=== PATIENT | male | born 1960 | race Caucasian/White ===

== ENCOUNTER 2024-12-12 11:45 | Outpatient (RCR) | payer OTHER, SELFPAY ==
[2024-06-18 11:02] LABS: Basophils Absolute Auto 0.02 K/uL (0.00-0.30); Basophils Percent Auto 0.4 % (0.0-3.0); Eosinophils Absolute Auto 0.01 K/uL (0.00-0.50); Eosinophils Percent Auto 0.2 % (0.0-7.0); Hematocrit 37.2 % (37.0-53.0); Hemoglobin* 13.1 gm/dL (13.5-17.5); Immature Granulocytes Abs Auto 0.01 K/uL (0.00-0.30); Immature Granulocytes Pct Auto 0.2 %; Lymphocytes Percent Auto 4.2 % (20-44); Mean Corpuscular HGB Conc 35 gm/dL (32-36); Mean Corpuscular Hemoglobin 31 pg (26-34); Mean Corpuscular Volume 89 fL (80-100); Monocytes Percent Auto 11.3 % (0.0-11.0); Neutrophils Percent Auto 83.7 % (42.0-72.0); Platelet Count* 148 K/uL (140-440); RDW Coefficient of Variation % 13.3 % (11.5-15.5)
[2024-06-18 11:05] LABS: Slide Review Reflex No
[2024-06-18 11:26] LABS: Albumin* 4.1 g/dL (3.3-5.0)
[2024-06-18 11:27] LABS: Chloride* 102 mmol/L (96-114); Potassium* 3.7 mmol/L (3.6-5.1)
[2024-06-18 11:29] LABS: Aspartate Amino Transferase* 28 U/L (12-35); Bilirubin Total* 1.1 mg/dL (0.1-1.5); Carbon Dioxide* 31 mmol/L (20-32); Creatinine* 0.6 mg/dL (0.5-1.5); Est. Creatinine Clearance* 82.99; Estimated Glomerular Filt Rate 108 ml/min; Total Protein* 6.5 g/dL (6.0-8.3)
[2024-06-18 11:30] LABS: Alanine Aminotransferase* 15 U/L (4-50); Alkaline Phosphatase* 86 U/L (40-150); Blood Urea Nitrogen* 13 mg/dL (7-30); Calcium* 9.2 mg/dL (8.4-10.6); Glucose* 92 mg/dL (60-115)
[2024-06-18 11:43] LABS: Anion Gap 6 mEq/L (7-15); Sodium* 139 mmol/L (135-149)
[2024-06-18 11:46] LABS: PSA Diagnostic* < 0.06 ng/mL (0.10-4.00)
[2024-09-17 12:29] LABS: Basophils Absolute Auto 0.01 K/uL (0.00-0.30); Basophils Percent Auto 0.2 % (0.0-3.0); Hematocrit 41.4 % (37.0-53.0); Hemoglobin* 14.2 gm/dL (13.5-17.5); Immature Granulocytes Abs Auto 0.01 K/uL (0.00-0.30); Immature Granulocytes Pct Auto 0.2 %; Lymphocytes Percent Auto 11.9 % (20-44); Mean Corpuscular HGB Conc 34 gm/dL (32-36); Mean Corpuscular Hemoglobin 31 pg (26-34); Mean Corpuscular Volume 91 fL (80-100); Monocytes Percent Auto 9.4 % (0.0-11.0); Neutrophils Percent Auto 78.3 % (42.0-72.0); Platelet Count* 162 K/uL (140-440); RDW Coefficient of Variation % 11.4 % (11.5-15.5); Red Blood Count 4.57 m/uL (4.30-5.90); White Blood Count* 4.89 K/uL (4.50-11.00)
[2024-09-17 12:33] LABS: Slide Review Reflex No
[2024-09-17 12:46] LABS: Albumin* 4.3 g/dL (3.3-5.0); Chloride* 104 mmol/L (96-114); Potassium* 4.1 mmol/L (3.6-5.1); Sodium* 141 mmol/L (135-149)
[2024-09-17 12:49] LABS: Alanine Aminotransferase* 18 U/L (4-50); Alkaline Phosphatase* 121 U/L (40-150); Anion Gap 6 mEq/L (7-15); Aspartate Amino Transferase* 25 U/L (12-35); Bilirubin Total* 0.6 mg/dL (0.1-1.5); Blood Urea Nitrogen* 13 mg/dL (7-30); Carbon Dioxide* 31 mmol/L (20-32); Creatinine* 0.5 mg/dL (0.5-1.5); Est. Creatinine Clearance* 82.99; Estimated Glomerular Filt Rate 115 ml/min; Glucose* 125 mg/dL (60-115)
[2024-09-17 12:50] LABS: Calcium* 9.6 mg/dL (8.4-10.6)
[2024-09-17 13:45] LABS: PSA Diagnostic* < 0.06 ng/mL (0.10-4.00)
--- NOTE | 2024-09-18 11:15 | URNOTE ---
Request received for authorization for Leuprolide (Eligard) ([id number]). Prior authorization is not required as services are based on medical necessity per [employer]. Ann Liu Ref#[id number].
[2024-09-19 14:42] VITALS: BP 139/87; PULSE 82; RESP 16; TEMP 36.3; O2SAT 98
--- NOTE | 2024-11-29 13:20 | ONC.NURNOTE ---
Patient called for refill of tamsulosin- originally prescribed by Dr Mares patient was reminded that he needs a PCP- which he has not yet established care with since moving to [place] senior medical writer advised patient to check with Dr Mares about refills in the mean time, until he has PCP
[2024-12-12 11:54] LABS: Basophils Absolute Auto 0.02 K/uL (0.00-0.30); Basophils Percent Auto 0.4 % (0.0-3.0); Hematocrit 42.6 % (37.0-53.0); Hemoglobin* 14.6 gm/dL (13.5-17.5); Immature Granulocytes Abs Auto 0.01 K/uL (0.00-0.30); Immature Granulocytes Pct Auto 0.2 %; Lymphocytes Percent Auto 11.2 % (20-44); Mean Corpuscular HGB Conc 34 gm/dL (32-36); Mean Corpuscular Hemoglobin 30 pg (26-34); Mean Corpuscular Volume 89 fL (80-100); Monocytes Percent Auto 8.6 % (0.0-11.0); Neutrophils Percent Auto 79.6 % (42.0-72.0); Platelet Count* 175 K/uL (140-440); RDW Coefficient of Variation % 12.1 % (11.5-15.5); White Blood Count* 5.34 K/uL (4.50-11.00)
[2024-12-12 11:59] LABS: Slide Review Reflex No
[2024-12-12 12:13] LABS: Albumin* 4.4 g/dL (3.3-5.0); Chloride* 101 mmol/L (96-114); Potassium* 3.7 mmol/L (3.6-5.1); Sodium* 140 mmol/L (135-149)
[2024-12-12 12:15] LABS: Blood Urea Nitrogen* 12 mg/dL (7-30); Creatinine* 0.6 mg/dL (0.5-1.5); Est. Creatinine Clearance* 81.91; Estimated Glomerular Filt Rate 108 ml/min
[2024-12-12 12:16] LABS: Alanine Aminotransferase* 19 U/L (4-50); Alkaline Phosphatase* 118 U/L (40-150); Anion Gap 5 mEq/L (7-15); Aspartate Amino Transferase* 25 U/L (12-35); Bilirubin Total* 0.8 mg/dL (0.1-1.5); Carbon Dioxide* 34 mmol/L (20-32); Glucose* 131 mg/dL (60-115); Total Protein* 7.2 g/dL (6.0-8.3)
[2024-12-12 12:17] LABS: Calcium* 9.4 mg/dL (8.4-10.6)
[2024-12-12 12:50] LABS: PSA Diagnostic* < 0.06 ng/mL (0.10-4.00)
[2024-12-12] MEDS: LEUPROLIDE ACETATE 22.5 MG IM (13:49)
== END 2024-12-15 23:59 | disposition home or self-care (01) ==
LOC: CCIC 11:45
PROVIDERS: Visit Provider Internal Medicine Hematology & Oncology
DX: C61 Malignant neoplasm of prostate (principal); M85.80 Other specified disorders of bone density and structure, unspecified site; R19.7 Diarrhea, unspecified; R53.83 Other fatigue; R23.2 Flushing
CPT/HCPCS: 36415; 80053; 84153; 85025; 96402; 99202; 99205; 99213; 99214; G0463; J9217

== ENCOUNTER 2025-03-21 13:36 | Outpatient (CLI) | payer OTHER, SELFPAY | END 2025-03-21 13:37 | disposition home or self-care (01) | PROVIDERS: PCP Family Medicine; Visit Provider Family Medicine | DX: G62.9 Polyneuropathy, unspecified (principal); R53.83 Other fatigue; Z79.899 Other long term (current) drug therapy; Z11.8 Encounter for screening for other infectious and parasitic diseases | CPT/HCPCS: 82607; 84443; 86618 ==

== ENCOUNTER 2025-07-02 13:00 | Outpatient (RCR) | payer OTHER, SELFPAY ==
--- NOTE | 2025-03-07 09:54 | ONC.NURNOTE ---
Jeremiah called to report he inadvertantly took a second dose of prednisone and abiraterone at 2230 last night- 15 hours following the am dose he had eaten within 2 hours of taking the 2nd dose he called poison control and they advised no further action needed, other than skipping todays dose of abiraterone, and to monitor for any changes in his physical status, this senior underwriter supports this recommendation and patient reports no changes in his physical status noted that taking abiraterone with food does increase the bioavailability
[2025-03-13 13:59] LABS: Hematocrit* 39.4 % (37.0-53.0); Hemoglobin* 13.7 gm/dL (13.5-17.5); Immature Granulocytes Abs Auto 0.00 K/uL (0.00-0.30); Immature Granulocytes Pct Auto 0.0 %; Mean Corpuscular HGB Conc 35 gm/dL (32-36); Mean Corpuscular Hemoglobin 31 pg (26-34); Mean Corpuscular Volume 89 fL (80-100); RDW Coefficient of Variation % 12.2 % (11.5-15.5); Red Blood Count* 4.42 m/uL (4.30-5.90); White Blood Count* 5.06 K/uL (4.50-11.00)
[2025-03-13 14:09] LABS: Lymphocytes Absolute Auto 0.60 K/uL (0.90-2.90); Slide Review Reflex No
[2025-03-13 14:56] LABS: Albumin* 4.1 g/dL (3.3-5.0); Chloride* 102 mmol/L (96-114)
[2025-03-13 14:57] LABS: Potassium* 3.5 mmol/L (3.6-5.1); Sodium* 140 mmol/L (135-149)
[2025-03-13 14:59] LABS: Alanine Aminotransferase* 18 U/L (4-50); Anion Gap 9 mEq/L (7-15); Aspartate Amino Transferase* 31 U/L (12-35); Blood Urea Nitrogen* 13 mg/dL (7-30); Carbon Dioxide* 29 mmol/L (20-32); Creatinine* 0.6 mg/dL (0.5-1.5); Est. Creatinine Clearance* 81.91; Estimated Glomerular Filt Rate 108 ml/min
[2025-03-13 15:00] LABS: Alkaline Phosphatase* 110 U/L (40-150); Bilirubin Total* 0.7 mg/dL (0.1-1.5); Calcium* 9.3 mg/dL (8.4-10.6); Glucose* 118 mg/dL (60-115); Total Protein* 6.9 g/dL (6.0-8.3)
[2025-03-13 15:33] LABS: PSA Diagnostic* < 0.06 ng/mL (0.10-4.00)
--- NOTE | 2025-06-11 15:04 | ONC.NURNOTE ---
PA obtained for Abiraterone_ 05/28/25-06/11/26 Jeremiah was called with this information
[2025-06-19 12:09] VITALS: BP 160/87; PULSE 70; RESP 16; TEMP 36.4; O2SAT 97
[2025-06-19 12:40] LABS: Hematocrit* 40.0 % (37.0-53.0); Hemoglobin* 13.9 gm/dL (13.5-17.5); Immature Granulocytes Abs Auto 0.01 K/uL (0.00-0.30); Immature Granulocytes Pct Auto 0.2 %; Mean Corpuscular HGB Conc 35 gm/dL (32-36); Mean Corpuscular Hemoglobin 31 pg (26-34); Mean Corpuscular Volume 88 fL (80-100); RDW Coefficient of Variation % 12.3 % (11.5-15.5); Red Blood Count* 4.56 m/uL (4.30-5.90); White Blood Count* 6.10 K/uL (4.50-11.00)
[2025-06-19 12:49] LABS: Lymphocytes Absolute Auto 0.60 K/uL (0.90-2.90); Slide Review Reflex No
[2025-06-19 12:50] LABS: Albumin* 4.1 g/dL (3.3-5.0); Chloride* 104 mmol/L (96-114); Potassium* 3.7 mmol/L (3.6-5.1); Sodium* 139 mmol/L (135-149)
[2025-06-19 12:52] LABS: Blood Urea Nitrogen* 8 mg/dL (7-30); Creatinine* 0.6 mg/dL (0.5-1.5); Est. Creatinine Clearance* 81.91; Estimated Glomerular Filt Rate 108 ml/min
[2025-06-19 12:53] LABS: Alanine Aminotransferase* 19 U/L (4-50); Alkaline Phosphatase* 116 U/L (40-150); Anion Gap 5 mEq/L (7-15); Aspartate Amino Transferase* 29 U/L (12-35); Bilirubin Total* 0.6 mg/dL (0.1-1.5); Calcium* 9.3 mg/dL (8.4-10.6); Carbon Dioxide* 30 mmol/L (20-32); Glucose* 121 mg/dL (60-115); Total Protein* 7.0 g/dL (6.0-8.3)
[2025-06-19 13:33] LABS: PSA Diagnostic* < 0.06 ng/mL (0.10-4.00)
== END 2025-09-09 23:59 | disposition home or self-care (01) ==
LOC: CCIC 13:00
PROVIDERS: PCP Family Medicine; Visit Provider Internal Medicine Hematology & Oncology
DX: C61 Malignant neoplasm of prostate (principal); M85.80 Other specified disorders of bone density and structure, unspecified site; R23.2 Flushing; R19.7 Diarrhea, unspecified
CPT/HCPCS: 36415; 80053; 84153; 85025; 96402; 99214; 99215; G0463; J9217